=== PATIENT | female | born 1930 | race Caucasian/White ===

== ENCOUNTER 2016-05-24 07:20 | Inpatient (IN) | payer MEDICARE, BC ==
[2016-05-24] MEDS ORDERED: ACETAMINOPHEN 325 MG PO ONE (08:04)
[2016-05-24] MEDS ORDERED: ALBUTEROL/IPRATROPIUM 1 VIAL SOL INH ONE (08:04)
[2016-05-24] MEDS ORDERED: ACETAMINOPHEN 325 MG ONE (08:25)
[2016-05-24 08:35] LABS: BASOPHILS % (AUTO) 1 % (0-3); EOSINOPHILS % (AUTO) 1 % (0-9); HEMATOCRIT 31 % (35-47); MEAN CORPUSCULAR HGB CONC 35.7 gm/dl (32.0-36.0); MEAN CORPUSCULAR VOLUME 91 fL (81-99); MONOCYTES % (AUTO) 7.5 % (0-12); NEUTROPHILS % (AUTO) 77.3 % (37-80)
[2016-05-24 08:36] LABS: CALCIUM 8.3 mg/dl (8.5-10.1); POTASSIUM 4.2 mMol/L (3.5-5.1)
[2016-05-24] MEDS ORDERED: SODIUM CHLORIDE 0.9% 1000ML 1,000 ML IV ONE (08:40)
[2016-05-24] MEDS ORDERED: SODIUM CHLORIDE 0.9% 100 ML SOL IV SCH (09:00)
[2016-05-24 09:48] LABS: APPEARANCE,URINE Clear; BILIRUBIN,URINE NEGATIVE (NEGATIVE); COLOR,URINE Yellow; GLUCOSE, URINE (UA) NEGATIVE (NEGATIVE); KETONES,URINE NEGATIVE (NEGATIVE); LEUKOCYTE ESTERASE ,URINE NEGATIVE (NEGATIVE); NITRATE,URINE NEGATIVE (NEGATIVE); OCCULT BLOOD,URINE 1+ (NEG-TRACE); UROBILINOGEN,URINE 0.2 (0.2-1.0 EU)
[2016-05-24 09:58] LABS: RBC,URINE 0-2 (0-3AV/HPF); WBC,URINE 0-2 (0-5AV/HPF)
[2016-05-24] MEDS ORDERED: LEVOFLOXACIN 25 MG/ML 500 MG in SODIUM CHLORIDE 0.9% 100 ML 100 ML IV ONE (10:12)
[2016-05-24] MEDS ORDERED: OSELTAMIVIR PHOSPHATE 75 MG CAP PO ONE ×2 (10:15→10:33)
[2016-05-24] MEDS ORDERED: LEVOFLOXACIN 500 MG IV ONE ×2 (10:16→10:21)
[2016-05-24] MEDS ORDERED: LEVOFLOXACIN 500 MG TAB PO ONE (10:30)
[2016-05-24] MEDS ORDERED: LEVOFLOXACIN 500 MG IV SCH (10:30)
[2016-05-24] MEDS ORDERED: LEVOFLOXACIN 500 MG TAB ONE (10:33)
[2016-05-24] MEDS ORDERED: ACETAMINOPHEN 325 MG PO PRN (11:22)
[2016-05-24] MEDS ORDERED: SODIUM CHLORIDE 0.9% 50 ML 25 ML IV PRN (11:54)
[2016-05-24] MEDS: PRAZOSIN HYDROCHLORIDE 2 MG CAP PO SCH (13:51)
[2016-05-24] MEDS: DIVALPROEX ECC PO SCH ×2 (13:52→20:30)
[2016-05-24] MEDS: IBUPROFEN 400 MG TAB PO PRN (16:20)
[2016-05-24] MEDS: ACETAMINOPHEN 325 MG PO SCH ×2 (16:20→23:49)
[2016-05-24] MEDS: POTASSIUM CHLORIDE 10 MEQ TER PO SCH (16:23)
[2016-05-24] MEDS: OSELTAMIVIR PHOSPHATE 75 MG CAP PO SCH (20:37)
[2016-05-24] MEDS: BUSPIRONE HCL 5 MG TAB PO SCH (20:37)
[2016-05-24] MEDS: SODIUM CHLORIDE 0.9% FLUSH 10 ML SOL IV SCH (20:38)
[2016-05-24] MEDS: ATENOLOL 25 MG TAB PO SCH (20:38)
[2016-05-24] MEDS: MEMANTINE HYDROCHLORIDE 10 MG TAB PO SCH (20:41)
[2016-05-25] MEDS: SODIUM CHLORIDE 0.9% FLUSH 10 ML SOL IV SCH ×3 (04:15→21:25)
[2016-05-25] MEDS: PRAZOSIN HYDROCHLORIDE 2 MG CAP PO SCH (07:16)
[2016-05-25] MEDS: ALBUTEROL/IPRATROPIUM 1 VIAL SOL INH SCH ×3 (09:52→21:57)
[2016-05-25] MEDS: ACETAMINOPHEN 325 MG PO SCH ×3 (09:53→21:26)
[2016-05-25] MEDS: BUSPIRONE HCL 5 MG TAB PO SCH ×3 (09:53→21:28)
[2016-05-25] MEDS: IBUPROFEN 400 MG TAB PO PRN (09:53)
[2016-05-25] MEDS: POTASSIUM CHLORIDE 10 MEQ TER PO SCH ×2 (09:54→17:08)
[2016-05-25] MEDS: ASPIRIN 325 MG TAB PO SCH (09:55)
[2016-05-25] MEDS: DIVALPROEX ECC PO SCH ×3 (09:55→21:26)
[2016-05-25] MEDS: LEVOFLOXACIN 500 MG TAB PO SCH (09:55)
[2016-05-25] MEDS: MEMANTINE HYDROCHLORIDE 10 MG TAB PO SCH ×2 (09:56→21:28)
[2016-05-25] MEDS: PANTOPRAZOLE SODIUM 40 MG ECT PO SCH (09:56)
[2016-05-25] MEDS: OSELTAMIVIR PHOSPHATE 75 MG CAP PO SCH ×2 (09:57→21:30)
[2016-05-25] MEDS: ATENOLOL 25 MG TAB PO SCH ×2 (09:58→21:30)
[2016-05-25] MEDS ORDERED: LEVOFLOXACIN 25 MG/ML 250 MG in SODIUM CHLORIDE 0.9% 100 ML 100 ML IV SCH (10:00)
[2016-05-26] MEDS: ALBUTEROL/IPRATROPIUM 1 VIAL SOL INH SCH ×4 (02:41→21:59)
[2016-05-26] MEDS: SODIUM CHLORIDE 0.9% FLUSH 10 ML SOL IV SCH ×3 (06:58→21:52)
[2016-05-26] MEDS: PRAZOSIN HYDROCHLORIDE 2 MG CAP PO SCH (06:58)
[2016-05-26 07:42] LABS: HEMATOCRIT 30 % (35-47); MEAN CORPUSCULAR VOLUME 93 fL (81-99)
[2016-05-26 08:06] LABS: BASOPHILS % (MANUAL) 0 % (0-3); EOSINOPHILS % (MANUAL) 6 % (0-9); LYMPHOCYTES % (MANUAL) 17 % (10-50)
[2016-05-26 08:07] LABS: NORMAL RBCS PRESENT
[2016-05-26 08:08] LABS: POTASSIUM 4.4 mMol/L (3.5-5.1)
[2016-05-26 08:15] LABS: CALCIUM 8.6 mg/dl (8.5-10.1)
[2016-05-26] MEDS: ACETAMINOPHEN 325 MG PO SCH ×3 (09:02→21:48)
[2016-05-26] MEDS: POTASSIUM CHLORIDE 10 MEQ TER PO SCH ×2 (09:02→17:19)
[2016-05-26] MEDS: ASPIRIN 325 MG TAB PO SCH (09:02)
[2016-05-26] MEDS: BUSPIRONE HCL 5 MG TAB PO SCH ×3 (09:03→21:52)
[2016-05-26] MEDS: DIVALPROEX ECC PO SCH ×3 (09:03→21:50)
[2016-05-26] MEDS: MEMANTINE HYDROCHLORIDE 10 MG TAB PO SCH ×2 (09:04→21:49)
[2016-05-26] MEDS: LEVOFLOXACIN 500 MG TAB PO SCH (09:04)
[2016-05-26] MEDS: OSELTAMIVIR PHOSPHATE 75 MG CAP PO SCH ×2 (09:05→21:51)
[2016-05-26] MEDS: PANTOPRAZOLE SODIUM 40 MG ECT PO SCH (09:05)
[2016-05-26] MEDS: ATENOLOL 25 MG TAB PO SCH ×2 (09:06→21:52)
[2016-05-27] MEDS: ALBUTEROL/IPRATROPIUM 1 VIAL SOL INH SCH ×2 (02:09→09:13)
[2016-05-27] MEDS: SODIUM CHLORIDE 0.9% FLUSH 10 ML SOL IV SCH ×3 (02:16→14:02)
[2016-05-27] MEDS: PRAZOSIN HYDROCHLORIDE 2 MG CAP PO SCH (06:57)
[2016-05-27 09:17] VITALS: PULSE 86; RESP 20; O2SAT 94
[2016-05-27] MEDS: ACETAMINOPHEN 325 MG PO SCH ×2 (09:21→12:10)
[2016-05-27] MEDS: POTASSIUM CHLORIDE 10 MEQ TER PO SCH (09:22)
[2016-05-27] MEDS: DIVALPROEX ECC PO SCH ×2 (09:22→14:01)
[2016-05-27] MEDS: MEMANTINE HYDROCHLORIDE 10 MG TAB PO SCH (09:23)
[2016-05-27] MEDS: BUSPIRONE HCL 5 MG TAB PO SCH ×2 (09:23→14:02)
[2016-05-27] MEDS: ASPIRIN 325 MG TAB PO SCH (09:24)
[2016-05-27] MEDS: OSELTAMIVIR PHOSPHATE 75 MG CAP PO SCH (09:24)
[2016-05-27] MEDS: ATENOLOL 25 MG TAB PO SCH (09:24)
[2016-05-27] MEDS: LEVOFLOXACIN 500 MG TAB PO SCH (09:24)
[2016-05-27] MEDS: PANTOPRAZOLE SODIUM 40 MG ECT PO SCH (09:25)
[2016-05-27 10:09] VITALS: BP 118/75
[2016-05-27 10:30] VITALS: TEMP 96.2
== END 2016-05-27 13:20 | disposition other institution (70) | DRG 203 ==
LOC: ED 07:20 → UNDOADMOB 10:25 → ACUTE CARE 10:25 → OBSVTOIN 05-26 08:20
PROVIDERS: ADMIT Family Medicine; ATTEND Family Medicine
PROC: F01ZDZZ Gait and/or Balance Assessment (ICD-10-PCS; principal; 2016-05-27)
PROC: F01ZCZZ Transfer Assessment (ICD-10-PCS; 2016-05-27)
PROC: F01ZBZZ Bed Mobility Assessment (ICD-10-PCS; 2016-05-27)
PROC: F01L0ZZ Muscle Performance Assessment of Musculoskeletal System - Lower Back / Lower Extremity (ICD-10-PCS; 2016-05-27)
DX: J20.9 Acute bronchitis, unspecified (principal); N18.3 Chronic kidney disease, stage 3 (moderate); G30.1 Alzheimer's disease with late onset; F02.80 Dementia in other diseases classified elsewhere, unspecified severity, without behavioral disturbance, psychotic disturbance, mood disturbance, and anxiety; R06.2 Wheezing
CPT/HCPCS: 36415; 71010; 80048; 80053; 81001; 83880; 85007; 85025; 85027; 87040; 87070; 87205; 87804; 94150; 94640; 94664; 96365; 96366; 99284; 99285; J7620

== ENCOUNTER 2016-06-09 17:15 | Inpatient (IN) | payer MEDICARE, BC ==
[2016-06-09 19:05] LABS: APPEARANCE,URINE Clear; BILIRUBIN,URINE NEGATIVE (NEGATIVE); COLOR,URINE Yellow; GLUCOSE, URINE (UA) NEGATIVE (NEGATIVE); KETONES,URINE NEGATIVE (NEGATIVE); LEUKOCYTE ESTERASE ,URINE NEGATIVE (NEGATIVE); NITRATE,URINE NEGATIVE (NEGATIVE); OCCULT BLOOD,URINE TRACE INTACT (NEG-TRACE); UROBILINOGEN,URINE 0.2 (0.2-1.0 EU)
[2016-06-09 19:22] LABS: BASOPHILS % (AUTO) 1 % (0-3); EOSINOPHILS % (AUTO) 3 % (0-9); HEMATOCRIT 28 % (35-47); MEAN CORPUSCULAR HGB CONC 34.1 gm/dl (32.0-36.0); MEAN CORPUSCULAR VOLUME 93 fL (81-99); MONOCYTES % (AUTO) 9.5 % (0-12); NEUTROPHILS % (AUTO) 52.6 % (37-80)
[2016-06-09] MEDS ORDERED: METOPROLOL TARTRATE 5 MG/5 ML SOL IV ONE ×2 (19:41→19:44)
[2016-06-09 19:46] LABS: RBC,URINE 0-1 (0-3AV/HPF); WBC,URINE NEGATIVE (0-5AV/HPF)
[2016-06-09] MEDS ORDERED: DILTIAZEM 5 MG/ML SOL IV ONE ×2 (20:36→22:33)
[2016-06-09] MEDS ORDERED: DM/GUAIFENESIN SYRUP 10 ML SYRP PO PRN (20:39)
[2016-06-09] MEDS ORDERED: SENNOSIDES A AND B 8.6 MG TAB PO PRN (20:39)
[2016-06-09] MEDS ORDERED: DILTIAZEM 5 MG/ML 125 MG in SODIUM CHLORIDE 0.9% 100 ML 100 ML IV SCH (20:45)
[2016-06-09] MEDS ORDERED: SODIUM CHLORIDE 0.9% 100 ML 100 ML IV ONE (22:33)
[2016-06-09] MEDS: CHOLECALCIFEROL 1,000 IU TAB PO SCH (23:24)
[2016-06-09] MEDS: ACETAMINOPHEN 325 MG PO SCH (23:25)
[2016-06-09] MEDS: BUSPIRONE HCL 5 MG TAB PO SCH (23:25)
[2016-06-09] MEDS: CEFUROXIME 250 MG/5 ML PDR PO SCH (23:26)
[2016-06-09] MEDS: DONEPEZIL 10 MG TAB PO SCH (23:40)
[2016-06-09] MEDS: ALBUTEROL/IPRATROPIUM 1 VIAL SOL INH SCH (23:41)
[2016-06-10] MEDS ORDERED: DILTIAZEM ER 120 MG C24 PO ONE (01:48)
[2016-06-10] MEDS ORDERED: SODIUM CHLORIDE 0.9% FLUSH 10 ML SOL IV PRN (01:54)
[2016-06-10] MEDS: SODIUM CHLORIDE 0.9% FLUSH 10 ML SOL IV SCH ×3 (01:54→19:01)
[2016-06-10] MEDS ORDERED: DOCUSATE SODIUM 100 MG SGL PO PRN (02:20)
[2016-06-10] MEDS: PANTOPRAZOLE SODIUM 40 MG ECT PO SCH (06:39)
[2016-06-10] MEDS ORDERED: VITAMIN D PO SCH (08:15)
[2016-06-10] MEDS ORDERED: DIVALPROEX ECC PO SCH (08:15)
[2016-06-10] MEDS ORDERED: ATENOLOL 25 MG TAB ONE (08:47)
[2016-06-10] MEDS ORDERED: FUROSEMIDE 40 MG SOL ONE (08:47)
[2016-06-10] MEDS: ALBUTEROL/IPRATROPIUM 1 VIAL SOL INH SCH ×4 (08:50→20:45)
[2016-06-10] MEDS: ACETAMINOPHEN 325 MG PO SCH ×3 (08:51→20:47)
[2016-06-10] MEDS: ASPIRIN 325 MG TAB PO SCH (08:51)
[2016-06-10] MEDS: BUSPIRONE HCL 5 MG TAB PO SCH ×3 (08:52→16:28)
[2016-06-10] MEDS: CEFUROXIME 250 MG/5 ML PDR PO SCH ×2 (08:53→20:50)
[2016-06-10] MEDS: FOLIC ACID 1 MG TAB PO SCH (08:54)
[2016-06-10] MEDS: FUROSEMIDE 20mg SOL IV SCH ×2 (08:55→22:40)
[2016-06-10] MEDS: ATENOLOL 25 MG TAB PO SCH ×2 (08:55→20:53)
[2016-06-10] MEDS: ENOXAPARIN 30 MG SOL SC SCH (08:57)
[2016-06-10] MEDS ORDERED: FUROSEMIDE 20mg SOL IV SCH (09:00)
[2016-06-10] MEDS: CHOLECALCIFEROL 1,000 IU TAB PO SCH ×2 (09:01→20:52)
[2016-06-10] MEDS ORDERED: CHOLECALCIFEROL 1,000 IU TAB PO SCH (09:30)
[2016-06-10] MEDS ORDERED: SENNOSIDES A AND B 8.6 MG TAB PO PRN (09:36)
[2016-06-10] MEDS: DIVALPROEX 250 MG TCP PO SCH ×3 (11:57→16:28)
[2016-06-10] MEDS: CALCIUM CARBONATE 500 MG TAB PO SCH (11:58)
[2016-06-10] MEDS: MEMANTINE HYDROCHLORIDE 10 MG TAB PO SCH ×2 (12:08→20:51)
[2016-06-10] MEDS: CYANOCOBALAMIN 1000 MCG TAB PO SCH (12:08)
[2016-06-10] MEDS ORDERED: DONEPEZIL 5 MG 5 MG TAB PO SCH (20:00)
[2016-06-10] MEDS ORDERED: DILTIAZEM ER 120 MG C24 PO STA (20:05)
[2016-06-10] MEDS: FUROSEMIDE 40 MG SOL IV SCH (22:30)
[2016-06-10] MEDS: DONEPEZIL 10 MG TAB PO SCH (22:34)
[2016-06-11] MEDS: SODIUM CHLORIDE 0.9% FLUSH 10 ML SOL IV SCH ×2 (01:31→09:38)
[2016-06-11] MEDS ORDERED: DILTIAZEM ER 120 MG C24 PO PRN (02:00)
[2016-06-11] MEDS: PANTOPRAZOLE SODIUM 40 MG ECT PO SCH (06:40)
[2016-06-11 07:44] LABS: CALCIUM 8.3 mg/dl (8.5-10.1)
[2016-06-11 07:50] LABS: POTASSIUM 3.7 mMol/L (3.5-5.1)
[2016-06-11 07:52] LABS: BASOPHILS % (AUTO) 1 % (0-3); EOSINOPHILS % (AUTO) 3 % (0-9); HEMATOCRIT 29 % (35-47); MEAN CORPUSCULAR HGB CONC 34.3 gm/dl (32.0-36.0); MEAN CORPUSCULAR VOLUME 93 fL (81-99); MONOCYTES % (AUTO) 8.4 % (0-12); NEUTROPHILS % (AUTO) 60.4 % (37-80)
[2016-06-11] MEDS: ACETAMINOPHEN 325 MG PO SCH ×2 (08:49→11:47)
[2016-06-11] MEDS: ASPIRIN 325 MG TAB PO SCH (08:49)
[2016-06-11] MEDS: DIVALPROEX 250 MG TCP PO SCH ×2 (08:49→11:47)
[2016-06-11] MEDS: BUSPIRONE HCL 5 MG TAB PO SCH ×2 (08:49→11:47)
[2016-06-11] MEDS: CHOLECALCIFEROL 1,000 IU TAB PO SCH (08:50)
[2016-06-11] MEDS: ATENOLOL 25 MG TAB PO SCH (08:50)
[2016-06-11] MEDS: CALCIUM CARBONATE 500 MG TAB PO SCH (08:50)
[2016-06-11] MEDS: MEMANTINE HYDROCHLORIDE 10 MG TAB PO SCH (08:50)
[2016-06-11] MEDS: FOLIC ACID 1 MG TAB PO SCH (08:50)
[2016-06-11] MEDS: CYANOCOBALAMIN 1000 MCG TAB PO SCH (08:50)
[2016-06-11] MEDS: ENOXAPARIN 30 MG SOL SC SCH (08:51)
[2016-06-11] MEDS: CEFUROXIME 250 MG/5 ML PDR PO SCH (08:52)
[2016-06-11] MEDS ORDERED: DILTIAZEM ER 120 MG C24 PO SCH (09:00)
[2016-06-11] MEDS: ALBUTEROL/IPRATROPIUM 1 VIAL SOL INH SCH ×2 (09:08→12:45)
[2016-06-11] MEDS: FUROSEMIDE 40 MG SOL IV SCH (09:37)
[2016-06-11 12:48] VITALS: RESP 22; O2SAT 97
[2016-06-11 12:50] VITALS: BP 109/82; TEMP 97.9
[2016-06-11 13:11] VITALS: PULSE 113
== END 2016-06-11 13:55 | disposition short-term general hospital (02) | DRG 310 ==
LOC: ED 17:15 → ACUTE CARE 20:31
PROVIDERS: ADMIT Family Medicine; ATTEND Family Medicine
DX: I48.91 Unspecified atrial fibrillation (principal); I50.9 Heart failure, unspecified; G30.1 Alzheimer's disease with late onset; F02.80 Dementia in other diseases classified elsewhere, unspecified severity, without behavioral disturbance, psychotic disturbance, mood disturbance, and anxiety; N18.3 Chronic kidney disease, stage 3 (moderate); D63.1 Anemia in chronic kidney disease
CPT/HCPCS: 36415; 71010; 80048; 81001; 83880; 84484; 85025; 93005; 93012; 94640; 96374; 99221; 99285; J1940; J7620; A6232; J1650

== ENCOUNTER 2017-10-03 17:16 | Emergency (ER) | payer MEDICARE, BC ==
[2017-10-03 18:27] LABS: HEMATOCRIT 33 % (35-47); HEMOGLOBIN 11.6 gm/dl (12.0-15.5); MEAN CORPUSCULAR HEMOGLOBIN 32.7 pg (27.0-32.0); MEAN CORPUSCULAR HGB CONC 35.6 gm/dl (32.0-36.0); MEAN CORPUSCULAR VOLUME 92 fL (81-99)
[2017-10-03 18:53] LABS: ALBUMIN 3.5 gm/dl (3.4-5.0); BILIRUBIN,TOTAL 0.2 mg/dl (0.2-1.0); CREATININE 2.24 mg/dl (0.60-1.00); POTASSIUM 5.3 mMol/L (3.5-5.1); THYROID STIMULATING HORMONE 2.613 uIU/ml (0.358-3.740)
[2017-10-03 18:55] LABS: APPEARANCE,URINE Turbid; BILIRUBIN,URINE 2+ (NEGATIVE); COLOR,URINE Red; GLUCOSE, URINE (UA) NEGATIVE (NEGATIVE); KETONES,URINE TRACE (NEGATIVE); LEUKOCYTE ESTERASE ,URINE 3+ (NEGATIVE); NITRATE,URINE NEGATIVE (NEGATIVE); OCCULT BLOOD,URINE 3+ (NEG-TRACE); PH,URINE 6.5
[2017-10-03 18:57] LABS: INR 1.02 (0.86-1.12)
[2017-10-03 19:07] LABS: BACTERIA 1+ (< 1+); CRYSTALS NEGATIVE (0-3 AVE/HPF); ICTOTEST,URINE NEGATIVE (NEGATIVE); RBC,URINE TNTC (0-3AV/HPF)
[2017-10-03 19:23] VITALS: TEMP 97.2
[2017-10-03 19:28] VITALS: RESP 18; O2SAT 97
[2017-10-03 19:29] VITALS: BP 129/74; PULSE 62
[2017-10-03 19:37] LABS: BAND NEUTROPHILS % (MANUAL) 5 %; BASOPHILS % (MANUAL) 0 % (0-3); EOSINOPHILS % (MANUAL) 0 % (0-9); LYMPHOCYTES % (MANUAL) 34 % (10-50); MONOCYTES % (MANUAL) 4 % (0-12); NEUTROPHILS % (MANUAL) 57 % (37-80)
[2017-10-03 19:38] LABS: NORMAL RBCS PRESENT
== END 2017-10-03 20:18 | disposition short-term general hospital (02) | DRG 696 ==
LOC: ED 17:16
DX: R31.9 Hematuria, unspecified (principal); I10 Essential (primary) hypertension
CPT/HCPCS: 36415; 80053; 81001; 84443; 85007; 85027; 85610; 87088; 99283